=== PATIENT | female | born 1990 | race Caucasian/White ===

== ENCOUNTER 2023-03-11 12:29 | Emergency (ER) | payer OTHER, SELFPAY ==
[2023-03-11 12:38] VITALS: BP 108/68; PULSE 85; RESP 16; TEMP 36.2; O2SAT 98
--- NOTE | 2023-03-11 12:49 | ED.URI ---
HPI - URI/Sore Throat General Chief Complaint: Upper Respiratory Infection Stated Complaint: COUGH/CONGESTION/SINUS PAIN/SWOLLEN GLAND/TIRED Time Seen by Provider: 03/11/23 12:49 Source: patient Mode of arrival: ambulatory Limitations: no limitations History of Present Illness HPI Narrative: 32 yo F presents stating she has been sick with sinus symptoms since 02/25. Was seen at another and given amoxicillin and prednisone. Only took 5 days of amoxicillin because she states it wasn't helping. continues to have sinus pressure, headaches, sore throat, post nasal drainage. Afebrile. had neg strep test at other . Not taking any OTC meds to treat her symptoms. All systems reviewed and negative except as noted above. Related Data Allergies Allergy/AdvReac Type Severity Reaction Status Date / Time No Known Allergies Allergy Verified 03/11/23 12:41 Review of Systems Review of Systems: CONSTITUTIONAL: Denies fever, chills, or sweats. EYES: Denies visual changes, redness, or discharge. ENT: reports rhinorrhea, congestion, sore throat, sinus pressure. Denies otalgia. CARDIOVASCULAR: Denies chest pain, palpitations, or edema. RESPIRATORY: Denies cough or dyspnea. GASTROINTESTINAL: Denies abdominal pain, nausea, vomiting, or diarrhea. GENITOURINARY: Denies dysuria or hematuria. SKIN: Denies rash or itching. MUSCULOSKELETAL: Denies back pain, joint pain, or myalgia. NEUROLOGIC: Denies headache, numbness, or weakness. PSYCHIATRIC: Denies anxiety or depression. All other systems reviewed are negative, except as documented in HPI. 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 There is no relevant family history pertinent to the presenting complaint. Exam Narrative: GENERAL: This is a well-nourished, well-developed patient, in no apparent distress. HEAD: normocephalic, atraumatic. EYES: PERRL. Sclera clear/white. Vision is grossly intact. EARS: External ears normal, auditory canals clear and without drainage, bilateral TMs opaque, dull light reflex, no perforation bilaterally. NOSE: External nose normal with purulent nasal drainage, erythema and swelling to bilateral nares. bilateral maxiallary sinus tenderness. THROAT: Mucous membranes moist, erythema with post nasal drainage. NECK: Neck supple, non-tender without lymphadenopathy, masses or thyromegaly. CARDIOVASCULAR: Regular rate and rhythm without murmurs, gallops, or rubs. RESPIRATORY: Clear to auscultation. Breath sounds equal bilaterally. No wheezes, rales, or rhonchi. SKIN: warm, Dry, intact with no suspicious lesions or rash, good texture and turgor. NEURO: awake, alert, and oriented to person, place and time. There were no obvious focal neurologic abnormalities. EXTREMITIES: No joint tenderness, effusion, or edema noted. Course Course Level of Care: Express Care Visit Vital Signs Vital signs: Vital Signs Temperature 36.2 C L 03/11/23 12:38 Pulse Rate 85 03/11/23 12:38 Respiratory Rate 16 03/11/23 12:38 Blood Pressure 108/68 03/11/23 12:38 Pulse Oximetry 98 03/11/23 12:38 Temperature 36.2 C L 03/11/23 12:38 Pulse Rate 85 03/11/23 12:38 Respiratory Rate 16 03/11/23 12:38 Blood Pressure 108/68 03/11/23 12:38 Pulse Oximetry 98 03/11/23 12:38 Reviewed MDM - URI/Sore Throat MDM Narrative Medical decision making narrative: Patient is
== END 2023-03-11 13:04 | disposition home or self-care (01) ==
PROVIDERS: Emergency Provider Nurse Practitioner Family; PCP Emergency Medicine
DX: J01.90 Acute sinusitis, unspecified (principal)
CPT/HCPCS: 99213; G0463

== ENCOUNTER 2023-11-29 11:34 | Outpatient (CLI) | payer OTHER, SELFPAY ==
[2023-11-29 18:48] LABS: Basophils Percent Auto 0.4 % (0.2-1.2); Eosinophils Absolute Auto 0.2 K/mm3 (0-0.3); Eosinophils Percent Auto 2.1 % (0-4.4); Hematocrit 41.9 % (37.0-47.0); Hemoglobin 14.1 g/dL (12.0-15.0); Immature Granulocyte Absolute 0.03 K/mm3 (0.00-0.031); Immature Granulocyte Percent A 0.4 % (0-0.5); Lymphocytes Absolute Auto 1.85 K/mm3 (0.9-3.2); Mean Corpuscular HGB Conc 33.7 g/dl (32-36); Mean Corpuscular Hemoglobin 30.7 pg (26-34); Mean Corpuscular Volume 91.3 fl (80-100); Mean Platelet Volume 9.7 fl (7.4-10.4); Monocytes Absolute Auto 0.4 K/mm3 (0.1-0.6); Neutrophils Absolute Auto 4.6 K/mm3 (1.3-6.7); Neutrophils Percent Auto 65.1 % (45.5-73.1); Platelet Count Result 206 k/mm3 (150-375); Red Blood Count 4.59 M/mm3 (4.2-5.4); Red Cell Distribution Width 12.7 % (11.5-14.5); White Blood Count 7.1 K/mm3 (4.5-10.0)
[2023-11-29 19:10] LABS: Alanine Aminotransferase 14 U/L (6-35); Albumin Level 4.5 g/dL (3.5-5.1); Alkaline Phosphatase 58 U/L (38-126); Anion Gap 7 mmol/L (4-12); Aspartate Amino Transferase 22 U/L (14-36); Bilirubin,Total 0.6 mg/dL (0.2-1.3); Blood Urea Nitrogen 16 mg/dL (7-17); Calcium 9.5 mg/dL (8.4-10.2); Carbon Dioxide 24 mmol/L (22-30); Chloride 109 mmol/L (98-107); Estimated Glomerular Filt Rate > 60; Glucose 82 mg/dL (65-110); Potassium 4.3 mmol/L (3.4-5.0); Sodium 140 mmol/L (137-145)
[2023-11-29 19:59] LABS: Vitamin D 25 Hydroxy 24.2 ng/mL
[2023-11-29 20:13] LABS: Thyroid Stimulating Hormone Reflex 0.893 uIU/mL (0.465-4.68)
== END 2023-11-29 11:35 | disposition home or self-care (01) ==
LOC: ANHGOSHLAB 11:35
PROVIDERS: PCP Emergency Medicine; Visit Provider Emergency Medicine
DX: R53.83 Other fatigue (principal)
CPT/HCPCS: 36415; 80053; 82306; 82607; 84443; 85025

== ENCOUNTER 2025-06-10 14:05 | Emergency (ER) | payer OTHER, SELFPAY ==
[2025-06-10 14:15] VITALS: BP 107/76; PULSE 86; RESP 16; TEMP 37.1; O2SAT 100
[2025-06-10 14:34] LABS: EDSTREPNEGPOS1 Negative (Negative)
--- NOTE | 2025-06-10 15:05 | ED.URI ---
HPI - URI/Sore Throat General Chief Complaint: Upper Respiratory Infection Stated Complaint: Strep Symptoms Time Seen by Provider: 06/10/25 14:57 Source: patient and RN notes reviewed Mode of arrival: ambulatory Limitations: no limitations History of Present Illness HPI Narrative: 34-year-old female patient presents today with a 4 day history of sore throat, headache, body aches, chills and sweats. She was seen 1 day after onset of symptoms by her PCP who tested her for COVID and flu and both were negative. She currently rates her sore throat 10/15 and has been trying Sudafed, Tylenol, and Mucinex with minimal relief. Related Data Home Medications ?Medication ?Instructions ?Recorded ?Confirmed ?Last Taken ?Type No Home Medications 06/10/25 06/10/25 Unknown History Allergies Allergy/AdvReac Type Severity Reaction Status Date / Time No Known Allergies Allergy Verified 06/10/25 14:13 [facility] Family History Family History Other Breast cancer Family history of stroke Hypertension Social History Social History Smoking status: Never smoker Alcohol intake: current Alcohol use details: SOCIALLY Substance use: never Substance use type: does not use Do You Feel Safe in your Home?: Yes Living arrangements: alone Occupation/Education: occupation 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 Please see nursing chart for further information. There is no relevant family history pertinent to the presenting complaint Exam Narrative: GENERAL: Well-appearing, well-nourished, and in no acute distress. HEAD: Normocephalic, atraumatic. EYES: EOMI. No redness or drainage. Conjunctivae normal. ENT: Mucous membranes pink and moist. Nares clear. No rhinorrhea. TMs normal bilaterally. Throat erythematous. Tonsils 2 to 3+ with white exudate. Uvula midline. NECK: Normal AROM. Supple. No lymphadenopathy. CHEST: No respiratory distress. Clear to auscultation. HEART: Regular rate and rhythm. No murmur appreciated. EXTREMITIES: Normal range of motion. No edema. SKIN: Warm, dry, no rash. Capillary refill normal. Normal skin turgor. NEURO: No focal deficits. Alert and oriented x3. Gait steady. PSYCH: Normal affect. No signs of depression or anxiety. Course Course Level of Care: Express Care Visit Vital Signs Vital signs: Vital Signs Temperature 98.7 F 06/10/25 14:15 Pulse Rate 86 06/10/25 14:15 Respiratory Rate 16 06/10/25 14:15 Blood Pressure 107/76 06/10/25 14:15 Pulse Oximetry 100 06/10/25 14:15 Temperature 98.7 F 06/10/25 14:15 Pulse Rate 86 06/10/25 14:15 Respiratory Rate 16 06/10/25 14:15 Blood Pressure 107/76 06/10/25 14:15 Pulse Oximetry 100 06/10/25 14:15 Reviewed MDM - URI/Sore Throat MDM Narrative Medical decision making narrative: 34-year-old female patient presents today with a 4 day history of sore throat, headache, body aches, chills and sweats. She was seen 1 day after onset of symptoms by her PCP who tested her for COVID and flu and both were negative. She currently rates her sore throat 3/10 and has been trying Sudafed, Tylenol, and Mucinex with minimal relief. Upon exam, patient has 2 to 3+ tonsils with white exudate bilaterally. Uvula midline. Rapid strep negative. Culture pending. Offered patient a 1 time dose of oral dexamethasone to help with her discomfort in swollen tonsils. She declined. Symptoms likely viral in etiology. Discussed [id number] medication use and duration of illness. No prescription medications indicated at this time. Anticipatory guidance given. Vital signs stable. Differential Diagnosis Differential diagnosis: Likely upper respiratory infection, viral infection, pharyngitis and other (Strep throat) Lab Data Attestation: I reviewed the patient's lab results. Labs: Lab Results 06/10/25 Range/Units 14:32 POC Grp A Strep Screen Negative (Negative) Critical Care Time Critical Care Time Critical Care Time: No Discharge Plan Discharge Clinical Impression: Upper respiratory infection Qualifiers: URI type: unspecified URI Qualified Code(s): J06.9 - Acute upper respiratory infection, unspecified Patient Disposition: Home Condition: Stable Instructions: Upper Respiratory Infection (DC) Additional Instructions: Your rapid strep swab was negative today at [facility]. You will be notified in a few days if the culture comes back positive for strep, and appropriate antibiotics will be called in for you at that time. Your symptoms are likely due to a viral illness, which is not treated with antibiotics. Viral symptoms can be present for up to 7-10 days. Take Tylenol or ibuprofen for fever or pain. Rest and stay hydrated. Follow up with your PCP in 7 days if symptoms are not improving. Go to the ER immediately if you have any difficulty breathing or swallowing. Patient Language: Belgian Prescriptions: No Action No Home Medications Follow-up/Referrals: PHYSICIAN,BOTTLE TESTER [Primary Care Provider, Internal Medicine] Time of Disposition: 15:08
== END 2025-06-10 15:11 | disposition home or self-care (01) ==
PROVIDERS: Emergency Provider Nurse Practitioner
DX: J06.9 Acute upper respiratory infection, unspecified (principal)
CPT/HCPCS: 87081; 87880; 99213; G0463